=== PATIENT | female | born 1950 | race Caucasian/White ===

== ENCOUNTER 2017-05-19 07:56 | Inpatient (IN) | payer OTHER ==
--- NOTE | 2017-05-19 06:38 | PDHPUP ---
History & Physical Update H&P update statement: This history and physical update is based on an assessment of the patient which was completed after admission or registration (within 24 hours), but prior to the surgery/procedure. H&P update: H&P reviewed & patient examined, no change in patient's condition since H&P completed
[2017-05-19] MEDS ORDERED: fentaNYL 100 MCG/2 ML INJ IT ONE (08:11)
[2017-05-19] MEDS ORDERED: GABAPENTIN 300 MG CAP PO ONE (08:11)
[2017-05-19] MEDS ORDERED: morphINE PF 5 MG/10 ML INJ IT ONE (08:11)
[2017-05-19] MEDS ORDERED: ACETAMINOPHEN 500 MG TAB PO ONE (08:11)
[2017-05-19] MEDS ORDERED: ceFAZolin 2 GM/DEXTROSE 100 ML IV ONE (08:11)
[2017-05-19] MEDS ORDERED: DEXAMETHASONE 10 MG/ML VIAL IVP ONE (08:11)
[2017-05-19] MEDS ORDERED: LR 1,000 ML IV ONE (08:30)
[2017-05-19] MEDS ORDERED: LIDOCAINE 1% 2 ML INJ ID PRN (08:30)
[2017-05-19] MEDS ORDERED: LIDOCAINE 1% 2 ML INJ ONE (08:41)
[2017-05-19] MEDS ORDERED: THROMBIN (BOVINE) 5,000 UNIT VIAL TP ONE (09:05)
[2017-05-19] MEDS ORDERED: BUPIVACAINE 0.25% 30 ML SDV ONE (09:06)
[2017-05-19] MEDS ORDERED: BUPIVACAINE/EPI 0.25% 30 ML SDV ONE (09:06)
[2017-05-19] MEDS ORDERED: CHLORHEXIDINE GLUC HIBICLENS 118 ML BTL TP ONE (09:07)
[2017-05-19] MEDS ORDERED: PROPOFOL/EMULSION 500 MG/50 ML BOTTLE IV ONE (09:46)
[2017-05-19] MEDS ORDERED: MIDAZOLAM 2 MG/2 ML VIAL ONE (09:46)
[2017-05-19] MEDS ORDERED: LIDOCAINE 2% 100 MG/5 ML SYR ONE (09:55)
[2017-05-19] MEDS ORDERED: ROCURONIUM 50 MG/5 ML VIAL ONE (09:56)
[2017-05-19] MEDS ORDERED: PHENYLEPHRINE HCL 100 MCG/ML SYR ONE (10:10)
[2017-05-19] MEDS ORDERED: PHENYLEPHRINE 10 MG/ML SDV ONE (10:11)
--- NOTE | 2017-05-19 10:38 | PDANEPAE ---
ANE Past Medical History - Cardiovascular History Hx Hypertension: No Hx Arrhythmias: No Hx Chest Pain: No Hx Coronary Artery / Peripheral Vascular Disease: No Hx CHF / Valvular Disease: No Hx Palpitations: No - Pulmonary History Hx COPD: No Hx Asthma/Reactive Airway Disease: No Hx Recent Upper Respiratory Infection: No Hx Oxygen in Use at Home: No Hx Sleep Apnea: No Sleep Apnea Screening Result - Last Documented: Negative - Neurologic History Hx Cerebrovascular Accident: No Hx Seizures: No Hx Dementia: No - Endocrine History Hx Diabetes: No - Renal History Hx Renal Disorders: No - Liver History Hx Hepatic Disorders: No - Neurological & Psychiatric Hx Hx Neurological and Psychiatric Disorders: Yes Neurological / Psychiatric History Comment: low back pain, sciatica-bilat, radiates down mostly R leg. Depression- after spouse passed over 10 yrs ago. Currently to 2nd spouse. - Cancer History Hx Cancer: No - Congenital Disorder History Hx Congenital Disorders: No - GI History Hx Gastrointestinal Disorders: Yes Gastrointestinal History Comment: IBS-well controlled - Other Health History Other Health History: none - Chronic Pain History Chronic Pain: Yes (back,R leg) - Surgical History Prior Surgeries: bilat carpal tunnel surgery. bilat breast implants ANE Review of Systems - Exercise capacity METS (RN): 3 METS ANE Patient History - Allergies Allergies/Adverse Reactions: No Known Allergies Allergy (Unverified 05/09/17 10:17) - Home Medications Home Medications: Citalopram [CeleXA] 20 mg PO HS 05/09/17 [Last Taken 05/18/17] Dicyclomine [Bentyl 20 MG (*)] 20 mg PO TIDMEAL 05/09/17 [Last Taken 05/18/17] Estradiol/Norgestimate [Prefest Tablet] 0.5 each PO DAILY 05/09/17 [Last Taken 05/18/17] Vitamin B Complex [Stress B] 1 each PO DAILY 05/09/17 [Last Taken 05/12/17] valACYclovir [Valtrex (*)] 500 mg PO DAILY 05/09/17 [Last Taken 05/18/17] Gabadone Capsule 05/19/17 [Last Taken 05/14/17] Hydrochlorothiazide 12.5 mg 05/19/17 [Last Taken 05/18/17] ZyrTEC 10 mg (*) 05/19/17 [Last Taken 05/12/17] - NPO status NPO Since - Liquids (Date): 05/18/17 NPO Since - Liquids (Time): 21:30 NPO Since - Solids (Date): 05/18/17 NPO Since - Solids (Time): 18:00 - Smoking Hx Smoking Status: Never smoked ANE Labs/Vital Signs - Vital Signs Blood Pressure: 157/91 Heart Rate: 79 Respiratory Rate: 18 O2 Sat (%): 98 Height: 161.29 cm Weight: 63.503 kg ANE Physical Exam - Airway Mallampati Score: Class 2 Mouth exam: normal dental/mouth exam - Pulmonary Pulmonary: no respiratory distress - Cardiovascular Cardiovascular: regular rate and rhythym - ASA Status ASA Status: I ANE Anesthesia Plan Anesthesia Plan: general endotracheal anesthesia
[2017-05-19] MEDS: BACITRACIN 50,000 UNITS/10 ML SYR IRR ONE ×2 (10:53→12:30)
[2017-05-19] MEDS ORDERED: fentaNYL 100 MCG/2 ML INJ ONE (11:46)
[2017-05-19] MEDS ORDERED: morphINE PF 5 MG/10 ML INJ ONE (11:48)
[2017-05-19] MEDS ORDERED: NALOXONE HCL 0.4 MG/ML INJ IVP PRN ×2 (13:00→13:44)
[2017-05-19] MEDS ORDERED: LR 500 ML IV PRN (13:00)
[2017-05-19] MEDS ORDERED: MEPERIDINE 25 MG/ML SYR IVP PRN (13:00)
[2017-05-19] MEDS ORDERED: ONDANSETRON 4 MG/2 ML VIAL IVP PRN ×2 (13:00→13:44)
[2017-05-19] MEDS ORDERED: fentaNYL 100 MCG/2 ML INJ IVP PRN (13:00)
--- NOTE | 2017-05-19 13:00 | POSTANESTH ---
Post Anesthetic Evaluation Cardiovascular Status: Normal, Stable Respiratory Status: Normal, Stable Level of Consciousness/Mental Status: Can Participate in Eval Pain Control: Adequate, Prn Tx Ordered Nausea/Vomiting Control: Adequate, Prn Tx Ordered Complications Possibly Related to Anesthesia: None Noted
--- NOTE | 2017-05-19 13:29 | GOP ---
[f rep st] OPERATIVE REPORT DATE OF OPERATION: 05/19/2017 SURGEON: Ian Escobedo MD NEUROSURGEON: Ian Escobedo M.D. MULTI SKILLED OPERATOR: Manish Lassiter P.A.-C. ANESTHESIA: General endotracheal. PREOPERATIVE DIAGNOSIS: 1. L4-L5 critical spinal stenosis. 2. Spondylolisthesis. 3. Severe lateral recess impingement. 4. Intractable back and right lower extremity radicular pain and neurogenic claudication. 5. Failed conservative care. POSTOPERATIVE DIAGNOSIS: 1. L4-L5 critical spinal stenosis. 2. Spondylolisthesis. 3. Severe lateral recess impingement. 4. Intractable back and right lower extremity radicular pain and neurogenic claudication. 5. Failed conservative care. PROCEDURE PERFORMED: 1. Right-sided L4-L5 far lateral transpedicular decompression with L4-L5 posterior nonsegmental (pe dicle screw and axle device) fixation. 2. Posterolateral fusion with local autograft, bone morphogenic protein and morselized allograft. 3. L4-L5 posterior/transforaminal lumbar interbody fusion with 2 structural PEEK interbody spacers, local autograft and bone morphogenic protein. 4. Use of intraoperative microscopy with fluoroscopy and computer volumetric stereotactic navigatio n with intraoperative neurophysiologic testing. 5. Injection of intrathecal narcotic analgesics and subcutaneous and intramuscular local. FINDINGS: ESTIMATED BLOOD LOSS: 150 mL. INDICATIONS: The patient is a 66-year-old woman with L4-L5 spondylolisthesis and severe/critical sp inal stenosis, lateral recess impingement, intractable back and leg pain and neurogenic claudication . She has failed extensive conservative care and presents now for surgical decompression and stabil ization through a mini open approach. DESCRIPTION OF PROCEDURE: After informed consent was obtained, the patient was taken to the operati ng room and placed in the prone position on the Wes table. The lumbosacral area was prepped and draped in a sterile fashion. After fluoroscopic localization of the correct levels, the subcutaneo us and intramuscular tissues were infiltrated with local anesthesia. A midline linear incision was then created over the L4-L5 spinous processes. This was carried down to the fascial layer, which was then incised using monopolar electrocautery and carried to the subfa scial plane along the spinous processes and lamina bilaterally. Intraoperative fluoroscopy was agai n utilized to verify the correct levels. Following this, the dissection was carried out over the fa cet joints. After re-verification of the correct levels, a right-sided far lateral transpedicular d ecompression was performed with complete unroofing of the facet joint and neural foramina on the rig ht side. The microscope was angled across the midline and a central canal decompression was perform ed as well. Following adequate decompression, the wound was copiously irrigated with antibiotic irrigation. Met iculous hemostasis was achieved. The [employer] neuronavigational system was then brought in and images sent to the [employer] station. Us ing computer volumetric stereotactic navigation, pedicle screws were placed on the right at the L4 a nd L5 levels. Each individual screw was tested neurophysiologically with monopolar electrical stimu lation, and interpretation of the potentials by the surgeon. Following this, a slight amount of dis traction was created across the interspace. A complete diskectomy was then performed under high-pow er microscopy and placement of 2 structural PEEK interbody spacers, local autograft, bone morphogeni c protein and morselized autograft for posterior/transforaminal lumbar interbody fusion at the L4-L5 level. The screw and leslye system was then placed in a slight amount of compression in order to faci litate bony union and to minimize the potential for posterior graft migration. An axial device was then placed for added fixation in order to eliminate the need for left-sided pedicle screws and to m aximize the surface area for the posterolateral fusion. Following this, the wound was again copiously irrigated and meticulous hemostasis was achieved. The remaining lamina and facet joint on the left were extensively decorticated and the residual local a utograft along with bone morphogenic protein was placed laterally for a posterolateral fusion at the L4-L5 level. 200 mcg of Duramorph along with 50 mcg of fentanyl were then injected intrathecally f or postoperative pain control. A drain was placed in the subcutaneous and intramuscular tissues. They were also infiltrated with l ocal anesthesia. The wound was closed in a layered fashion using interrupted Vicryl sutures followe d by Steri-Strips on the skin. COMPLICATIONS: None. DISPOSITION: The patient is currently in the process of being repositioned for extubation. /[id number]/MODL
--- NOTE | 2017-05-19 13:43 | SOAPPROG ---
SOAP Progress Note Assessment/Plan: Assessment: 66 yo F sp L4/5 TLIF Plan: stable to 3N LSO brace from [facility] Concepcion please call with neuro changes 05/19/17 13:41 Subjective: + back pain, no leg pain Objective: Vital Signs Temp Pulse Resp BP Pulse Ox 36.7 C 99 11 L 94/37 L 98 05/19/17 12:58 05/19/17 12:58 05/19/17 13:30 05/19/17 13:26 05/19/17 13:30 AAOx4, +FC PERRL, EOMI, no facial droop 5/5 + light touch ICD10 Worksheet Patient Problems: Problems Problem Status Onset Fusion of spine of lumbar region Acute - ICD10 Problem Qualifiers (1) Fusion of spine of lumbar region
[2017-05-19] MEDS ORDERED: diphenhydrAMINE 25 MG CAP PO PRN (13:44)
[2017-05-19] MEDS ORDERED: ONDANSETRON DISINTEGRATING 4 MG TAB PO PRN (13:44)
[2017-05-19] MEDS ORDERED: BISACODYL 10 MG SUPP PR PRN (13:44)
[2017-05-19] MEDS ORDERED: MAGNESIUM HYDROXIDE 30 ML UDCUP PO PRN (13:44)
[2017-05-19] MEDS ORDERED: morphINE PCA 30 MG/30 ML PCA IV PRN (13:44)
[2017-05-19] MEDS ORDERED: LACTULOSE 20 GM/30 ML UDCUP PO PRN (13:44)
[2017-05-19] MEDS ORDERED: NS 1,000 ML IV SCH (13:45)
[2017-05-19] MEDS: ACETAMINOPHEN 500 MG TAB PO SCH ×2 (14:35→21:44)
[2017-05-19] MEDS: POLYETHYLENE GLYCOL 3350 17 GM PKT PO SCH ×2 (14:38→21:43)
[2017-05-19] MEDS: METHOCARBAMOL 750 MG TAB PO PRN (14:51)
[2017-05-19] MEDS: DICYCLOMINE 20 MG TAB PO SCH ×2 (14:51→18:21)
[2017-05-19] MEDS: ceFAZolin 2 GM/DEXTROSE 100 ML IV SCH (17:03)
[2017-05-19] MEDS: SENNOSIDES/DOCUSATE SODIUM TAB PO SCH (20:12)
[2017-05-19] MEDS: CITALOPRAM 20 MG TAB PO SCH (20:12)
[2017-05-19] MEDS: morphINE SR 15 MG TAB PO SCH (20:12)
[2017-05-19] MEDS: FAMOTIDINE 20 MG TAB PO SCH (20:12)
[2017-05-20] MEDS: ceFAZolin 2 GM/DEXTROSE 100 ML IV SCH (01:48)
[2017-05-20 04:53] LABS: % IMMATURE GRANULYOCYTES 0.5 % (0.0-1.1); ABSOLUTE IMMATURE GRANULOCYTES 0.06 10^3/uL (0.00-0.10); ADD DIFF? NO; ADD MORPH? NO; ADD SCAN? NO; ATYPICAL LYMPHOCYTE FLAG 0 (0-99); FRAGMENT RBC FLAG 0 (0-99); HEMATOCRIT 29.7 % (38.0-47.0); HEMOGLOBIN 10.6 g/dL (12.6-16.3); LEFT SHIFT FLG 0 (0-99); LIPEMIA HEMOLYSIS FLAG 90 (0-99); MEAN CELL HEMOGLOBIN 32.7 pg (27.9-34.1); MEAN CELL HEMOGLOBIN CONCENTR. 35.7 g/dL (32.4-36.7); MEAN CELL VOLUME 91.7 fL (81.5-99.8); MEAN PLATELET VOLUME 9.5 fL (8.7-11.7); PLATELET CLUMPS FLAG 10 (0-99); PLATELET COUNT 246 10^3/uL (150-400); RED BLOOD CELL COUNT 3.24 10^6/uL (4.18-5.33); RED CELL DISTRIBUTION WIDTH 12.2 % (11.5-15.2)
[2017-05-20] MEDS: ACETAMINOPHEN 500 MG TAB PO SCH ×3 (04:54→21:35)
[2017-05-20 05:35] LABS: ANION GAP 7 mEq/L (8-16); CALCIUM 8.8 mg/dL (8.5-10.4); CARBON DIOXIDE 25 mEq/l (22-31); CHLORIDE 99 mEq/L (97-110); CREATININE 0.6 mg/dL (0.6-1.0); GLOMERULAR FILTRATION RATE > 60; GLUCOSE 121 mg/dL (70-100); SODIUM 131 mEq/L (134-144)
--- NOTE | 2017-05-20 08:13 | NEUSURGPN ---
Assessment/Plan: Assessment: 66 yo F sp L4/5 TLIF POD1 Plan: -Optmize pain management -Encourage electrolyte rich fluids -Continue WILIAM drain -PT/OT -Post op xrays pending -LSO brace from [facility]are[facility] Concepcion -please call with neuro changes -DVT prophx: TEDs, SCDs, Lovenox ok POD1 Subjective: Pain under good control with medications. Objective: NAD A&Ox3 MAEx4 5/5 and equal in BUE and BLE. Incisional dressing c/d/i - Physician Discussed Patient with : [facility] Physical Exam - Vitals, I&O, Labs I and O 05/19/17 05/20/17 05/21/17 05:59 05:59 05:59 Intake Total 1395 Output Total 1530 Balance -135 Weight 63.503 kg Intake: Oral (ml) 900 IV Intake (ml) 150 IV Infused (ml) 345 Ns 1,000 ml @ 75 mls/hr 245 IV CONT MIA Rx#: [id number] ceFAZolin 2 GM/DEXTROSE 100 100 ml @ 200 mls/hr IV Q8H MIA Rx#:[id number] Output: Urine (ml) 1200 Toilet 1200 WILIAM Drain Output (ml) 245 Right Back Wes Pathak 245 Orthopat Drain Output (ml 85 ) Right Back 85 Other: Intake Quantity Yes Sufficient Number of Voids Toilet 1 Vital Signs Temp Pulse Resp BP Pulse Ox 36.3 C 68 16 130/68 H 98 05/20/17 07:51 05/20/17 07:51 05/20/17 07:51 05/20/17 07:51 05/20/17 07:51 Laboratory Results 05/20/17 04:45 05/20/17 04:45 ICD10 Worksheet Patient Problems: Problems Problem Status Onset Fusion of spine of lumbar region Acute
[2017-05-20] MEDS ORDERED: ESTRADIOL PO SCH (09:00)
[2017-05-20] MEDS ORDERED: ENOXAPARIN 40 MG/0.4 ML SYR SC SCH (09:00)
[2017-05-20] MEDS ORDERED: NORGESTIMATE PO SCH (09:00)
[2017-05-20] MEDS: ENOXAPARIN 40 MG/0.4 ML SYR SC SCH (09:04)
[2017-05-20] MEDS: morphINE SR 15 MG TAB PO SCH ×2 (09:04→19:50)
[2017-05-20] MEDS: FAMOTIDINE 20 MG TAB PO SCH ×2 (09:04→19:50)
[2017-05-20] MEDS: SENNOSIDES/DOCUSATE SODIUM TAB PO SCH ×2 (09:05→19:50)
[2017-05-20] MEDS: METHOCARBAMOL 750 MG TAB PO PRN (09:05)
[2017-05-20] MEDS: valACYclovir 500 MG TAB PO SCH (09:05)
[2017-05-20] MEDS: HYDROCHLOROTHIAZIDE 12.5 MG CAP PO SCH (09:06)
[2017-05-20] MEDS: DICYCLOMINE 20 MG TAB PO SCH ×3 (09:06→18:20)
[2017-05-20] MEDS: POLYETHYLENE GLYCOL 3350 17 GM PKT PO SCH ×3 (09:07→21:35)
[2017-05-20] MEDS: oxyCODONE IR 5 MG TAB PO PRN ×4 (09:07→18:19)
[2017-05-20] MEDS: ESTRADIOL PO SCH ×2 (09:45→16:19)
[2017-05-20] MEDS: NORETHINDRONE PO SCH ×2 (09:45→16:19)
[2017-05-20] MEDS: CITALOPRAM 20 MG TAB PO SCH (19:50)
[2017-05-20 20:09] VITALS: TEMP 98.2
[2017-05-21] MEDS: METHOCARBAMOL 750 MG TAB PO PRN (02:37)
[2017-05-21] MEDS: oxyCODONE IR 5 MG TAB PO PRN ×2 (02:37→10:49)
[2017-05-21] MEDS: ACETAMINOPHEN 500 MG TAB PO SCH (05:19)
[2017-05-21] MEDS: DICYCLOMINE 20 MG TAB PO SCH (07:07)
--- NOTE | 2017-05-21 07:49 | SOAPPROG ---
SOAP Progress Note Assessment/Plan: Assessment: 66 yo female POD #2 sp L4/5 TLIF. Doing well Na is stable at 131 pain well controlled Plan: DC home with WILIAM in place today 05/21/17 07:47 Subjective: awake, alert, pain well controlled. Preoperative pain resolved. Doing well. Objective: Vital Signs Temp Pulse Resp BP Pulse Ox 36.8 C 69 16 128/64 H 92 05/21/17 00:00 05/21/17 00:00 05/21/17 00:00 05/21/17 00:00 05/21/17 00:00 Laboratory Results 05/20/17 04:45 05/21/17 04:41 05/20/17 05/21/17 05/22/17 05:59 05:59 05:59 Intake Total 1395 Output Total 1530 435 Balance -135 -435 WILIAM 85 ML Neuro: WOLF, sens +LT Dressing: CDI ICD10 Worksheet Patient Problems: Problems Problem Status Onset Fusion of spine of lumbar region Acute
[2017-05-21 08:24] VITALS: BP 159/90; PULSE 90; RESP 20; O2SAT 97
[2017-05-21] MEDS: POLYETHYLENE GLYCOL 3350 17 GM PKT PO SCH (08:53)
[2017-05-21] MEDS: SENNOSIDES/DOCUSATE SODIUM TAB PO SCH (08:53)
[2017-05-21] MEDS: morphINE SR 15 MG TAB PO SCH (08:54)
[2017-05-21] MEDS: valACYclovir 500 MG TAB PO SCH (08:54)
[2017-05-21] MEDS: FAMOTIDINE 20 MG TAB PO SCH (08:55)
[2017-05-21] MEDS: HYDROCHLOROTHIAZIDE 12.5 MG CAP PO SCH (08:55)
[2017-05-21] MEDS: ENOXAPARIN 40 MG/0.4 ML SYR SC SCH (08:56)
[2017-05-21] MEDS: ESTRADIOL PO SCH (09:09)
[2017-05-21] MEDS: NORETHINDRONE PO SCH (09:09)
== END 2017-05-21 10:59 | disposition home or self-care (01) | DRG 460 ==
LOC: F3N 07:56 → OBSVTOIN 13:48 → F3N 14:05
PROVIDERS: ADMIT Neurological Surgery; ATTEND Neurological Surgery
PROC: 01NB0ZZ Release Lumbar Nerve, Open Approach (ICD-10-PCS; principal; 2017-05-19 10:00)
PROC: 0SG0071 Fusion of Lumbar Vertebral Joint with Autologous Tissue Substitute, Posterior Approach, Posterior Column, Open Approach (ICD-10-PCS; principal; 2017-05-19 10:00)
PROC: 0ST20ZZ Resection of Lumbar Vertebral Disc, Open Approach (ICD-10-PCS; principal; 2017-05-19 10:00)
PROC: 3E0V0GB Introduction of Recombinant Bone Morphogenetic Protein into Bones, Open Approach (ICD-10-PCS; principal; 2017-05-19 10:00)
PROC: 4A10X4G Monitoring of Central Nervous Electrical Activity, Intraoperative, External Approach (ICD-10-PCS; principal; 2017-05-19 10:00)
PROC: 0SG00AJ Fusion of Lumbar Vertebral Joint with Interbody Fusion Device, Posterior Approach, Anterior Column, Open Approach (ICD-10-PCS; principal; 2017-05-19 10:00)
PROC: 8E0WXBZ Computer Assisted Procedure of Trunk Region (ICD-10-PCS; principal; 2017-05-19 10:00)
DX: M48.06 Spinal stenosis, lumbar region (principal); M43.16 Spondylolisthesis, lumbar region; M47.26 Other spondylosis with radiculopathy, lumbar region; M54.2 Cervicalgia; I44.7 Left bundle-branch block, unspecified; I10 Essential (primary) hypertension; K58.9 Irritable bowel syndrome, unspecified
CPT/HCPCS: 97116-GP; 97161-GP; 97165-GO; C1713; C1762; G8978-GP-CI; G8979-GP-CI; J0690; J1100; J1650; J2001; J2250; J2274; J2370; J2704; J3010